=== PATIENT | male | born 1965 | race Two or more races ===

== ENCOUNTER 2017-04-28 14:36 | Emergency (ER) | payer OTHER ==
[~2017-04-28] VITALS: Ht 170.2 cm; Wt 74.8 kg
[~2017-04-28 14:36] MED LIST: NORCO 5-325 TA1 EACH ORAL; SILVADENE20 GM TP
[2017-04-28 15:05] VITALS: BP 147/99
[2017-04-28] MEDS ORDERED: IBUPROFEN600 MG ORAL (16:06)
--- NOTE | 2017-04-28 16:06 | Diagnostic Imaging Report ---
Indication: PAIN Technique: 3 views left hand Comparison: none Findings: There is dislocation of the fifth proximal interphalangeal joint. This results in severe flexion deformity at the joint. No definite underlying fracture is demonstrated. No acute fractures. No other dislocations. Impression: Positive for anterior dislocation of the fifth interphalangeal joint. No definite underlying fracture. Per referring physician, this is chronic. No acute abnormality of the fourth digit correspond with stated clinical history of pain demonstrated. No other acute bony trauma
--- NOTE | 2017-04-28 16:06 | Emergency Room Report ---
History of Present Illness General Chief Complaint: Upper Extremity Injury Source: Patient Present Illness HPI 52-year-old male presents emergency department complaining of pain, swelling and erythema to the left hand since this a.m. Patient reports pain is 7/10 in severity he states he was working with some rope when his hand was caught inside of it. 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 Patient reports tenderness the left ring finger. Patient denies taking medications for his pain. he denies open lesions. Denies numbness tingling or loss of sensation or gross motor movements of the extremities, incontinence of bowel or bladder. Denies CP, Palpitations, LOC, AMS, dizziness, Changes in Vision, Sensation, paresthesias, or a sudden severe headache. Allergies: Coded Allergies: No Known Allergies (Unverified , 04/25/16) Patient History Past Medical History: see triage record Past Surgical History: none Pertinent Family History: none Reviewed Nursing Documentation: PMH: Agreed, PSxH: Agreed Nursing Documentation-PMH Past Medical History: No Stated History Review of Systems All Other Systems: negative except mentioned in HPI Physical Exam Vital Signs Date Time Temp Pulse Resp B/P Pulse Ox O2 Delivery O2 Flow Rate FiO2 04/28/17 14:42 98.2 78 18 147/99 98 Room Air Sp02 EP Interpretation: reviewed, normal General Appearance: no apparent distress, alert, GCS 15, non-toxic Head: normocephalic, atraumatic Eyes: bilateral eye PERRL, bilateral eye normal inspection ENT: hearing grossly normal, normal pharynx, no angioedema, normal voice Neck: full range of motion, supple/symm/no masses Respiratory: lungs clear, normal breath sounds, speaking full sentences Cardiovascular #1: regular rate, rhythm, no edema Musculoskeletal: back normal, gait/station normal, normal range of motion, swelling - base of the left ring finger, other - obvious deformity of the left 5th digit. , tender - ttp to the base of the left ring finger Neurologic: alert, oriented x3, responsive, motor strength/tone normal, sensory intact, speech normal Psychiatric: judgement/insight normal, memory normal, mood/affect normal Skin: normal color, no rash, warm/dry, well hydrated Medical Decision Making PA Attestation Dr. Miranda is my supervising Physician whom patient management has been discussed with. Diagnostic Impression: Primary Impression: Contusion Qualified Codes: S60.042A - Contusion of left ring finger without damage to nail, initial encounter Additional Impression: Sprain of finger of left hand Qualified Codes: S63.619A - Unspecified sprain of unspecified finger, initial encounter ER Course 52-year-old male presents emergency department complaining of pain, swelling and erythema to the left hand since this a.m. Patient reports pain is 7/10 in severity he states he was working with some rope when his hand was caught inside of it. 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 Patient reports tenderness the left ring finger. Patient denies taking medications for his pain. he denies open lesions. Denies numbness tingling or loss of sensation or gross motor movements of the extremities, incontinence of bowel or bladder. Denies CP, Palpitations, LOC, AMS, dizziness, Changes in Vision, Sensation, paresthesias, or a sudden severe headache. Ddx considered but are not limited to Fracture, dislocation, contusion, Sprain/ Strain/Spasm. Vital signs: are WNL, pt. is afebrile H&PE are most consistent with contusion and finger sprain, will r/o fracture with imaging ORDERS: - X-ray Left Hand 3 views - negative for fx, Dislocation, or significant soft tissue injury, deformity of the left 5th digit noted, no acute process- per preliminary read in ED by Dr. Miranda ED INTERVENTIONS: - finger Splint applied to left 4th digit by building energy retrofit technician. Pt. remains neurovascularly intact. -Tylenol PO DISCHARGE: At this time pt. is stable for d/c to home. Will provide printed patient care instructions, and any necessary prescriptions. Care plan and follow up instructions have been discussed with the patient prior to discharge. Last Vital Signs Date Time Temp Pulse Resp B/P Pulse Ox O2 Delivery O2 Flow Rate FiO2 04/28/17 15:05 98.2 18 147/99 98 Room Air 04/28/17 14:42 78 Disposition: HOME, SELF-CARE Condition: Stable Scripts Ibuprofen* (MOTRIN*) 600 Mg Tablet 600 MG ORAL THREE TIMES A DAY, #30 TAB 0 Refills Prov: Delmi Mclain P.A. 04/28/17 Referrals: NOT CHOSEN [facility]/MD,REFERRING (PCP) Patient Instructions: CONTUSION, Upper Extremity Additional Instructions: Take medications as directed. Follow up with PCP in 3-5 days Return sooner to ED if new symptoms occur, or current symptoms become worse. - Please note that this Emergency Department Report was dictated using [employer] information [employer] technology software, occasionally this can lead to erroneous entry secondary to interpretation by the dictation equipment. Delmi Mclain Apr 28, 2017 16:05
[2017-04-28 16:46] VITALS: BP 147/99
== END 2017-04-28 16:50 | disposition home or self-care (01) ==
LOC: EMR 15:10
DX: S60.042A Contusion of left ring finger without damage to nail, initial encounter (principal); S63.637A Sprain of interphalangeal joint of left little finger, initial encounter; W23.0XXA Caught, crushed, jammed, or pinched between moving objects, initial encounter; Y92.511 Restaurant or cafe as the place of occurrence of the external cause; Y99.0 Civilian activity done for income or pay
CPT/HCPCS: 29130; 99283